=== PATIENT | female | born 1950 | race Caucasian/White ===

== ENCOUNTER → 2017-10-07 | Outpatient (CLI) | payer MEDICARE ==
--- NOTE | 2017-10-11 11:44 | SLEEPCENT ---
DATE OF PROCEDURE: 10/07/2017 REFERRING PHYSICIAN: Janet Tamez Nocturnal polysomnography was performed for evaluation of sleep physiology in this patient with a history of excessive somnolence and impaired cognition, comorbidities of hypertension and cardiac ectopy. 7 hours and 21 minutes of data were reviewed. There were 375 minutes of sleep identified. Sleep latency was prolonged at 18 minutes. Rapid eye movement (REM) latency was normal at 72 minutes. Sleep architecture was fair with some fragmentation. There were three REM cycles appreciated. Overall sleep efficiency was 86%. The patient's electrocardiogram showed a sinus rhythm with frequent premature ventricular contractions (PVCs). Frequency of ectopic activity did seem to correlate with respiratory events. Though given the frequency of respiratory events, this was somewhat difficult to determine. EEG showed normal waveforms for awake and sleep. There were no focal events identified. There were 428 respiratory events identified of 10 seconds in duration or greater for an apnea/hypopnea index of 68.5. The events were primarily obstructive, not exclusive to sleep stage nor body posture. Arousals from respiratory events occurred 9.9 times per hour and oxygen desaturations were seen into the 70s. Remaining measures of sleep physiology were normal. IMPRESSION: 1. Severe obstructive sleep apnea syndrome, apnea/hypopnea index 68.5. 2. Frequent ventricular ectopy. RECOMMENDATION: The patient should be encouraged to return to the sleep disorder center for pressure therapy. In the interim, alcohol and sedative avoidance should be practiced and caution exercised during the operation of motor vehicles.
== END ==
LOC: M SLEEP 19:34
PROVIDERS: ATTEND Nurse Practitioner Adult Health
DX: G47.30 Sleep apnea, unspecified (principal)

== ENCOUNTER → 2017-10-29 | Outpatient (CLI) | payer MEDICARE ==
--- NOTE | 2017-10-29 10:45 | REPMRS ---
Patient History The patient states she had a clinical breast exam in May 2017. Patient is postmenopausal and has history of cancer in the left breast at age 59. No known family history of cancer. Digital Mammo Screening Bilat: October 29, 2017 - Exam #: [id number] Bilateral CC and MLO view(s) were taken. Technologist: Corrina Tejeda Technologist Prior study comparison: October 28, 2016, bilateral digital mammo screening bilat performed at [facility]. October 27, 2015, bilateral digital mammo screening bilat performed at [facility]. October 25, 2014, digital bilateral screening mammo, performed at [facility]. FINDINGS: There are scattered fibroglandular densities. There are stable post treatment changes in the left breast.There has been no change in the appearance of the mammogram from the prior studies. There is a mild amount of scattered fibroglandular density which is fairly symmetric. There is no interval development of dominant mass, architectural distortion, or clustered microcalcification suggestive of malignancy. ASSESSMENT: BI-RADS/ACR category 2 mammogram. Benign finding(s). Recommendation Routine screening mammogram in 1 year (for women over age 40). This mammogram was interpreted with the aid of an FDA-approved computer-aided dectection system. Electronically Signed By: Yunior Thorne MD 10/29/17 [id number]
== END ==
LOC: M RAD 09:29
PROVIDERS: ATTEND Internal Medicine Medical Oncology
DX: Z12.31 Encounter for screening mammogram for malignant neoplasm of breast (principal); Z78.0 Asymptomatic menopausal state; Z85.3 Personal history of malignant neoplasm of breast

== ENCOUNTER → 2017-11-20 | Outpatient (CLI) | payer MEDICARE | LOC: M SLEEP 19:21 | DX: G47.33 Obstructive sleep apnea (adult) (pediatric) (principal) | CPT/HCPCS: 95811 ==

== ENCOUNTER → 2018-10-29 | Outpatient (CLI) | payer MEDICARE ==
--- NOTE | 2018-10-29 13:18 | REPMRS ---
Patient History The patient states she had a clinical breast exam in May 2018.No known family history of cancer. Digital Mammo Screening Bilat: October 29, 2018 - Exam #: [id number] Bilateral CC and MLO view(s) were taken. Technologist: Edwige Mccurdy, Technologist Prior study comparison: October 29, 2017, bilateral digital mammo screening bilat performed at [facility]. October 28, 2016, bilateral digital mammo screening bilat performed at [facility]. October 27, 2015, bilateral digital mammo screening bilat performed at [facility]. FINDINGS: There are scattered fibroglandular densities. There are stable post treatment changes in the right breast. There has been no change in the appearance of the mammogram from the prior studies. There is a mild amount of scattered fibroglandular density which is fairly symmetric. There is no interval development of dominant mass, architectural distortion, or clustered microcalcification suggestive of malignancy. 3-D tomosynthesis shows no additional findings. Assessment: BI-RADS/ACR category 2 mammogram. Benign finding(s). Recommendation Routine screening mammogram of both breasts in 1 year (for women over age 40). This mammogram was interpreted with the aid of an FDA-approved computer-aided dectection system. Electronically Signed By: Yunior Thorne MD 10/29/18 [id number]
== END ==
LOC: M RAD 10:49
PROVIDERS: ATTEND Internal Medicine Medical Oncology
DX: Z12.31 Encounter for screening mammogram for malignant neoplasm of breast (principal); R92.8 Other abnormal and inconclusive findings on diagnostic imaging of breast

== ENCOUNTER → 2019-06-28 | Outpatient (CLI) | payer MEDICARE ==
[~2019-06-28] MED LIST: AMLO1TAB37 PO; LOPR1TAB6 PO; PRAV40TA2 PO; SYNT75TA PO
--- NOTE | 2019-07-07 10:48 | DEXA ---
AP SPINE L1 - L4 1.301 0.9 2.5 LT FEMUR TOTAL 0.978 -0.2 1.2 LT NECK 0.929 -0.8 0.9 RT FEMUR TOTAL 0.998 -0.1 1.2 RT NECK 0.990 -0.3 1.3 TOTAL BODY TOTAL OTHER COMMENTS: Normal bone densitometry of the spine and hips. FOLLOW-UP: Recommendation for the next bone density exam: 5 years. DAREK
== END ==
LOC: M WHC 13:03
PROVIDERS: ATTEND Internal Medicine Hematology & Oncology
DX: Z78.0 Asymptomatic menopausal state (principal)

== ENCOUNTER → 2019-11-01 | Outpatient (CLI) | payer MEDICARE ==
--- NOTE | 2019-11-01 09:05 | REPMRS ---
Patient History The patient states she had a clinical breast exam in May 2019. No known family history of cancer. 3D TOMOSYNTHESIS WAS PERFORMED. Digital Mammo Screening Bilat: November 01, 2019 - Exam #: [id number] Bilateral CC and MLO view(s) were taken. Technologist: Corrina Tejeda Technologist Prior study comparison: October 29, 2018, bilateral digital mammo screening bilat performed at [facility]. October 29, 2017, bilateral digital mammo screening bilat performed at [facility]. FINDINGS: There are scattered fibroglandular densities. There has been no change in the appearance of the mammogram from the prior studies. There is a mild amount of residual fibroglandular tissue which is fairly symmetric. There is no interval development of dominant mass, architectural distortion, or clustered microcalcification suggestive of malignancy. Assessment: BI-RADS/ACR category 1 mammogram. Negative Mammogram. Recommendation Routine screening mammogram in 1 year (for women over age 40). This mammogram was interpreted with the aid of an FDA-approved computer-aided dectection system. Electronically Signed By: Jamshid Quiroz MD 11/01/19 0905
== END ==
LOC: M RAD 08:09
PROVIDERS: ATTEND Internal Medicine Hematology & Oncology
DX: Z12.31 Encounter for screening mammogram for malignant neoplasm of breast (principal)

== ENCOUNTER → 2020-11-06 | Outpatient (CLI) | payer MEDICARE ==
--- NOTE | 2020-11-06 11:45 | REPMRS ---
Patient History The patient states she had a clinical breast exam in May 2020.No known family history of cancer. Taking unspecified hormones for 19 years. Digital Woman Screen Mammo: November 06, 2020 - Exam #: [id number] Bilateral CC and MLO view(s) were taken. Technologist: Tarsha Ngo, Technologist Prior study comparison: November 01, 2019, bilateral digital mammo screening bilat, performed at [facility]. October 29, 2018, bilateral digital mammo screening bilat, performed at [facility]. FINDINGS: There are scattered fibroglandular densities. The Volpara volumetric breast density category is:B. There are stable post treatment changes in the left breast. There has been no change in the appearance of the mammogram from the prior studies. There is a mild amount of scattered fibroglandular density which is fairly symmetric. There is no interval development of dominant mass, architectural distortion, or grouped microcalcification suggestive of malignancy. 3-D tomosynthesis shows no additional findings. Assessment: BI-RADS/ACR category 2 mammogram. Benign Findings. Recommendation Routine screening mammogram of both breasts in 1 year (for women over age 40). This mammogram was interpreted with the aid of an FDA-approved computer-aided dectection system. Electronically Signed By: Yunior Thorne MD 11/06/20 [id number]
== END ==
LOC: M WHC 10:47
PROVIDERS: ATTEND Internal Medicine Medical Oncology
DX: Z12.31 Encounter for screening mammogram for malignant neoplasm of breast (principal); Z86.000 Personal history of in-situ neoplasm of breast

== ENCOUNTER → 2021-08-21 | Outpatient (REF) | payer MEDICARE ==
[~2021-08-21] MED LIST changes: +METO1TAB87 PO
[2021-08-21 15:05] LABS: CREATININE FOR GFR 0.88 MG/DL (0.55-1.30); GLOMERULAR FILTRATION RATE > 60.0 (>39)
== END ==
LOC: M LAB REF 13:56
PROVIDERS: ATTEND Nurse Practitioner Family
DX: N18.2 Chronic kidney disease, stage 2 (mild) (principal)

== ENCOUNTER → 2021-11-06 | Outpatient (CLI) | payer MEDICARE | LOC: M WHC 09:56 | PROVIDERS: ATTEND Internal Medicine Medical Oncology | DX: Z12.31 Encounter for screening mammogram for malignant neoplasm of breast (principal); Z85.3 Personal history of malignant neoplasm of breast; Z78.0 Asymptomatic menopausal state ==

== ENCOUNTER → 2022-11-07 | Outpatient (CLI) | payer MEDICARE ==
[~2022-11-07] MED LIST changes: +CALC1TAB42 PO; +THERTAB52 PO
== END ==
LOC: M WHC 10:55
PROVIDERS: ATTEND Family Medicine
DX: Z12.31 Encounter for screening mammogram for malignant neoplasm of breast (principal)

== ENCOUNTER → 2023-09-05 | Outpatient (CLI) | payer MEDICARE | LOC: M WHC 13:25 | PROVIDERS: ATTEND Nurse Practitioner Family | DX: N18.2 Chronic kidney disease, stage 2 (mild) (principal); N28.81 Hypertrophy of kidney; Z90.5 Acquired absence of kidney ==

== ENCOUNTER → 2023-11-12 | Outpatient (CLI) | payer MEDICARE | LOC: M WHC 11:50 | PROVIDERS: ATTEND Family Medicine | DX: Z12.31 Encounter for screening mammogram for malignant neoplasm of breast (principal) ==

== ENCOUNTER 2024-01-28 07:25 | Day surgery (SDC) | payer MEDICARE ==
[~2024-01-28] VITALS: Ht 156.2 cm; Wt 74.3 kg
[~2024-01-28 07:25] MED LIST changes: +AMLO2.5C6 PO; +META28.32 PO
[2024-01-28] MEDS: NS 1,000 ML IV ONE (07:45)
[2024-01-28] MEDS ORDERED: GLYCOPYRROLATE INJ 0.2 MG/ML 2 ML VIAL As Ordered ONE (09:04)
[2024-01-28] MEDS ORDERED: propofoL 200 MG/20 ML VIAL As Ordered ONE (09:53)
[2024-01-28 10:31] VITALS: BP 115/56; TEMP 97.5; O2SAT 95
== END 2024-01-28 10:00 | disposition home or self-care (01) ==
LOC: M OPP 07:25
PROVIDERS: ATTEND Internal Medicine Gastroenterology
DX: Z12.11 Encounter for screening for malignant neoplasm of colon (principal); K64.0 First degree hemorrhoids; K57.30 Diverticulosis of large intestine without perforation or abscess without bleeding; G47.30 Sleep apnea, unspecified; Z99.89 Dependence on other enabling machines and devices; Z79.890 Hormone replacement therapy; Z79.899 Other long term (current) drug therapy

== ENCOUNTER → 2024-11-15 | Outpatient (CLI) | payer MEDICARE | LOC: M WHC 15:42 | PROVIDERS: ATTEND Registered Nurse | DX: Z12.31 Encounter for screening mammogram for malignant neoplasm of breast (principal); R92.323 Mammographic fibroglandular density, bilateral breasts; Z85.3 Personal history of malignant neoplasm of breast; Z98.890 Other specified postprocedural states ==

== ENCOUNTER → 2025-08-16 | Outpatient (CLI) | payer MEDICARE ==
[~2025-08-16] MED LIST changes: -PRAV40TA2 PO; +PRAV40TA85 PO
== END ==
LOC: M WHC 10:32
PROVIDERS: ATTEND Family Medicine
DX: E03.9 Hypothyroidism, unspecified (principal); M85.852 Other specified disorders of bone density and structure, left thigh

== ENCOUNTER → 2025-08-23 | Outpatient (REF) | payer MEDICARE ==
[2025-08-23 18:23] LABS: BACTERIA, URINE AUTO NEGATIVE (NEGATIVE); RBC, URINE AUTO 0 /HPF (0-3); SQUAMOUS EPITHELIAL CELL UR AU 0 /HPF (0-6); WBC, URINE AUTO 0 /HPF (0-3)
== END ==
LOC: M LAB REF 17:31
PROVIDERS: ATTEND Nurse Practitioner Family
DX: R31.29 Other microscopic hematuria (principal)